=== PATIENT | male | born 1995 | race Caucasian/White ===

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

== ENCOUNTER 2020-11-28 10:49 | Emergency (ER) | payer OTHER ==
[2020-11-28 12:12] LABS: HEMOGLOBIN 16.9 gm/dl (14.0-17.5); RED BLOOD COUNT 5.74 M/UL (4.20-5.50); WHITE BLOOD COUNT 9.1 K/UL (4.5-11.0)
[2020-11-28 12:34] LABS: BUN/CREATININE RATIO 23 (0-10)
== END 2020-11-28 14:46 | disposition home or self-care (01) ==
LOC: ER1 10:49
PROVIDERS: Emergency Medicine
DX: R51.9 Headache, unspecified (principal); F17.200 Nicotine dependence, unspecified, uncomplicated; Z20.822 Contact with and (suspected) exposure to COVID-19
CPT/HCPCS: 70496; 70498; 72125; 80053; 85025; 85652; 99284; Q9967; U0002